=== PATIENT | female | born 1995 ===

== ENCOUNTER 2018-08-29 12:45 | Inpatient (IN) | payer OTHER ==
[~2018-08-29] VITALS: Ht 152.4 cm; Wt 2.7 kg
[2018-09-05] MEDS ORDERED: PRENATAL TABLE1 EAC1 PO (05:38)
[2018-09-05] MEDS ORDERED: VALTREX1000 MG PO (05:39)
== END 2018-09-08 12:25 | disposition home or self-care (01) | DRG 788 ==
LOC: LDR 09-05 04:08 → OB/GYN 09-05 14:41 → LDR 09-13 12:45
PROVIDERS: Obstetrics & Gynecology
PROC: 4A1HXCZ Monitoring of Products of Conception, Cardiac Rate, External Approach (ICD-10-PCS; 2018-09-05)
PROC: 10D00Z1 Extraction of Products of Conception, Low, Open Approach (ICD-10-PCS; principal; 2018-09-05 12:00)
DX: O82 Encounter for cesarean delivery without indication (principal); Z3A.38 38 weeks gestation of pregnancy; Z37.0 Single live birth